=== PATIENT | male | born 1965 | race Caucasian/White ===

== ENCOUNTER 2024-02-07 19:54 | Emergency (ER) | payer OTHER ==
[~2024-02-07] VITALS: Ht 185.4 cm; Wt 102.3 kg
[2024-02-07 19:59] VITALS: TEMP 97.8
[2024-02-07] MEDS ORDERED: Amoxicillin/Clavulanate K+ 875/125 MG TAB PO ONE (21:00)
[2024-02-07] MEDS ORDERED: AMOXICILLIN 8751 TAB PO (21:06)
[2024-02-07 21:16] VITALS: BP 125/89; PULSE 77
== END 2024-02-07 21:16 | disposition home or self-care (01) ==
LOC: COL.ER 19:54
DX: S61.213A Laceration without foreign body of left middle finger without damage to nail, initial encounter (principal); W54.0XXA Bitten by dog, initial encounter